=== PATIENT | female | born 1965 | race Caucasian/White ===

== ENCOUNTER → 2017-08-03 | Outpatient (CLI) | payer MEDICAID ==
--- NOTE | 2017-08-05 18:29 | RADIOLOGY REPORT PS360 ---
US BREAST-LT COMPLETE W/AXILLA COMPARISON: None HISTORY: Evaluation of asymmetric density left breast TECHNIQUE: Targeted ultrasound FINDINGS: There is a small hypoechoic likely cystic lesion at the 1:00 position measuring 0.5 x 0.3 0.5 cm and this likely is a small cyst. There is a normal-appearing node in the axilla. IMPRESSION: Benign-appearing cystic lesion which appear to correspond in size and location to the density on recent mammogram, no additional evaluation is indicated recommend the patient continue with yearly screening mammography
--- NOTE | 2017-08-12 21:00 | RADIOLOGY REPORT PS360 ---
DIG MAMM- ABE ADD VIEWS W/CAD COMPARISON: Digital mammograms 07/11/2017 INDICATION: Evaluation of microcalcifications in each breast and possible new nodular density upper outer quadrant left breast TECHNIQUE: Spot compression magnification views were obtained of both breasts FINDINGS: Minimal scattered fibroglandular densities are seen in the right breast. There are few benign-appearing calcifications which appear to be typical of sclerosing adenosis. There are few microcalcifications near the biopsy clip left breast which have a benign appearance. There are additional clusters of microcalcifications most superior and inferior to the biopsy clip and these likely are due to sclerosing adenosis but there are slightly more focal than the other calcination is in a recommend patient return for 6 month follow-up left mammogram to evaluate for interval stability. The benign-appearing nodular density upper outer quadrant left breast is better seen on the magnification view and certainly has smooth borders and corresponds in size and location to the cystic lesion seen on the ultrasound exam performed the same date. IMPRESSION: 1. No suspicious abnormality right breast 2. 2 small clusters of microcalcifications most typical of sclerosing adenosis left breast just above and below the biopsy clip and recommend patient return for 6 month follow-up spot compression magnification views for continuing evaluation .BI-RADS CATEGORY: 3_Probably Benign-Short Term F/U RECOMMENDED FOLLOWUP: 6M 6MONTH FOLLOW-UP (A letter has been sent to the patient regarding results of the study.)
== END ==
LOC: RAD 13:45
DX: R92.8 Other abnormal and inconclusive findings on diagnostic imaging of breast (principal)
CPT/HCPCS: G0204